=== PATIENT | male | born 1970 | race Hispanic/Latino ===

== ENCOUNTER 2018-02-11 18:54 | Emergency (ER) | payer MEDICAID ==
[2018-02-11 18:54] VITALS: BMI 27.8
--- NOTE | 2018-02-11 20:44 | ED PDOC ---
Arrival/HPI - General Chief Complaint: Trauma Time Seen by Provider: 02/11/18 20:18 Historian: Patient - History of Present Illness Narrative History of Present Illness (Text): 02/11/18 20:41 47-year-old male presents today with head and neck pain status post fall. Patient states that he was sitting in a chair that broke. Patient states he fell to the ground hitting the back of his head and injuring his neck. He is complaining of headache and dizziness. He is complaining of neck pain. He denies numbness weakness or tingling in the extremities. Patient denies chest pain or shortness of breath. Patient denies back pain. Incident occurred prior to arrival. No medications have been taken for pain. no Nausea/vomiting. No other complaints Time/Duration: Prior to Arrival Past Medical History - Provider Review Nursing Documentation Reviewed: Yes - Travel History Have you recently traveled outside [place] w/in the past 3 mons?: No - Infectious Disease Hx of Infectious Diseases: None - Cardiac Hx Cardiac Disorders: No - Pulmonary Hx Respiratory Disorders: No - Neurological Hx Neurological Disorder: No - HEENT Hx HEENT Disorder: No - Renal Hx Renal Disorder: No - Endocrine/Metabolic Hx Endocrine Disorders: No - Hematological/Oncological Hx Blood Disorders: No - Integumentary Hx Dermatological Disorder: No - Musculoskeletal/Rheumatological Hx Musculoskeletal Disorders: No - Gastrointestinal Hx Gastrointestinal Disorders: No - Genitourinary/Gynecological Hx Genitourinary Disorders: No - Psychiatric Hx Anxiety: Yes Hx Substance Use: No - Surgical History Other/Comment: Left foot surgery. - Anesthesia Hx Anesthesia Reactions: No Hx Malignant Hyperthermia: No - Suicidal Assessment Feels Threatened In Home Enviroment: No Family/Social History - Physician Review Nursing Documentation Reviewed: Yes Family/Social History: Unknown Family HX Smoking Status: Never Smoked Hx Alcohol Use: No Hx Substance Use: No Hx Substance Use Treatment: No Allergies/Home Meds Allergies/Adverse Reactions: Allergies No Known Allergies Allergy (Verified 02/11/18 19:26) Review of Systems - Review of Systems Constitutional: absent: Fatigue, Fevers Eyes: absent: Vision Changes, Eye Pain Respiratory: absent: SOB, Cough Cardiovascular: absent: Chest Pain, Palpitations Gastrointestinal: absent: Abdominal Pain, Nausea, Vomiting Genitourinary Male: absent: Dysuria, Frequency, Hematuria, Urinary Output Changes Musculoskeletal: Neck Pain. absent: Arthralgias, Back Pain Skin: absent: Rash, Pruritis Neurological: Headache, Dizziness Psychiatric: absent: Anxiety, Depression Physical Exam Vital Signs Reviewed: Yes Vital Signs Temp Pulse Resp BP Pulse Ox 02/11/18 21:10 98 F 65 19 137/78 99 02/11/18 19:26 98.2 F 78 16 143/72 95 Temperature: Afebrile Blood Pressure: Normal Pulse: Regular Respiratory Rate: Normal Appearance: Positive for: Well-Appearing, Non-Toxic, Comfortable Pain Distress: None Mental Status: Positive for: Alert and Oriented X 3 - Systems Exam Head: Present: Tenderness (+ ttp over posterior scalp: small area of edema; no ecchymosis; no laceration) Pupils: Present: PERRL Extroacular Muscles: Present: EOMI Conjunctiva: Present: Normal Mouth: Present: Moist Mucous Membranes Neck: Present: Normal Range of Motion, MIDLINE TENDERNESS, Paraspinal Tenderness , Trachea Midline Respiratory/Chest: Present: Clear to Auscultation, Good Air Exchange. No: Respiratory Distress, Accessory Muscle Use, Tender to Palpation Cardiovascular: Present: Regular Rate and Rhythm, Normal S1, S2. No: Murmurs Abdomen: No: Tenderness, Rebound, Guarding Back: Present: Normal Inspection. No: Midline Tenderness, Paraspinal Tenderness Upper Extremity: Present: Normal Inspection, Normal ROM Lower Extremity: Present: Normal ROM Neurological: Present: GCS=15 Skin: Present: Warm, Dry, Normal Color. No: Rashes Psychiatric: Present: Alert, Oriented x 3 Medical Decision Making ED Course and Treatment: 02/11/18 20:45 Patient nontoxic well-appearing in no distress with stable vital signs. flexeril PO ct head; FINDINGS: Brain: The white-bhat differentiation is preserved demonstrating no acute territorial type infarct. No acute intracranial hemorrhage is seen. There is mild prominence or atrophy of the frontal sulci. Midline shift: There is no midline shift. Ventricles: No ventriculomegaly. Bones/joints: The calvarium demonstrates no evidence for a depressed fracture. There is a nonspecific hypodense lesion within the right parietal skull measuring 0.9 x 0.6 cm. Soft tissues: No acute abnormality. Sinuses: There is minimal mucosal thickening of the left maxillary sinus. Mastoid air cells: No mastoid effusion. IMPRESSION: 1. No acute intracranial abnormality. 2. Additional CT findings described above. ct c-spine; FINDINGS: Vertebrae: No acute cervical spine fracture or subluxation. The cervical lordosis is straightened. The facet alignment is preserved bilaterally. The occipital condyles and C1-C2 articulations appear intact. Discs/spinal canal/neural foramina: Spondylosis is visualized at multiple cervical levels. Bilateral neural foraminal narrowing is identified at C5-6. There is a significant decrease of disc height at C5- 6. Hypertrophic degenerative changes are identified at the junction of the anterior C1 arch and dens process. Artifact limits evaluation of the lower cervical spinal canal. Soft tissues: The prevertebral soft tissues appear within normal limits. Lung apices: No pneumothorax. Mild patchy nonspecific groundglass density is visualized within the lungs bilaterally. IMPRESSION: 1. No acute cervical spine fracture or subluxation. 2. The cervical lordosis is straightened. 3. Spondylosis is visualized at multiple cervical levels. 4. Bilateral neural foraminal narrowing is identified at C5-6. This can be further evaluated with a nonemergent MRI. Patient reassessment: Feeling better with medications ambulating with a steady gait. Muscle strength 5 out of 5 bilaterally. wants to go home. I advised to followup with the orthopedist/back specialist within the next 2 days. Return if symptoms worsen persist or new symptoms develop Patient verbalizes understanding of discharge instructions and need for immediate followup. all aspects of this case were discussed the attending of record. Impression: neck pain, head injury Tylenol every 4 hours as needed for pain Flexeril one tablet every 8 hours as needed for muscle spasms: May cause drowsiness Followup with the orthopedist within the next 2 days Followup with primary care physician within the next 2 days Follow up with the neurologist within the next 2 days. Return if symptoms worsen persist or if new symptoms develop - RAD Interpretation Radiology Orders: 02/11/18 20:19 CERVICAL SPINE W/O CONTRAST [CT] Stat HEAD W/O CONTRAST [CT] Stat - Medication Orders Current Medication Orders: Discontinued Medications Cyclobenzaprine HCl (Flexeril) 10 mg PO STAT STA Stop: 02/11/18 20:20 Last Admin: 02/11/18 20:32 Dose: 10 mg Disposition/Present on Arrival - Present on Arrival Any Indicators Present on Arrival: No History of DVT/PE: No History of Uncontrolled Diabetes: No Urinary Catheter: No History of Decub. Ulcer: No History Surgical Site Infection Following: None - Disposition Have Diagnosis and Disposition been Completed?: Yes Diagnosis: Head injury, Neck pain Disposition: HOME/ ROUTINE Disposition Time: 21:58 Patient Plan: Discharge Condition: GOOD Discharge Instructions (ExitCare): Closed Head Injury (DC), Neck Pain Additional Instructions: Tylenol every 4 hours as needed for pain Flexeril one tablet every 8 hours as needed for muscle spasms: May cause drowsiness Followup with the orthopedist within the next 2 days Followup with primary care physician within the next 2 days Follow up with the neurologist within the next 2 days. Return if symptoms worsen persist or if new symptoms develop Prescriptions: Cyclobenzaprine [Cyclobenzaprine HCl] 10 mg PO Q8 #10 tab Referrals: Landen Zapata MD [Primary Care Provider] - Follow up with primary Mohsen De Santiago MD [Staff Provider] - Follow up with primary Forms: [facility] ([place]), WORK NOTE
[2018-02-11 21:10] VITALS: BP 137/78; PULSE 65; RESP 19; TEMP 98; O2SAT 99
--- NOTE | 2018-02-11 21:42 | CT ---
EXAM: CT Head Without Intravenous Contrast EXAM DATE/TIME: 02/11/2018 8:19 PM CLINICAL HISTORY: The patient age is 47 years old and is male; Injury or trauma; Fall; Initial encounter; Blunt trauma (contusions or hematomas); Consciousness not specified; Additional info: Headache Facility exam id and description: Ct heads head w/o contrast TECHNIQUE: Axial computed tomography images of the head/brain without intravenous contrast. All CT scans at this facility use one or more dose reduction techniques, viz.: automated exposure control; ma/kV adjustment per patient size (including targeted exams where dose is matched to indication; i.e. head); or iterative reconstruction technique. Coronal and sagittal reformatted images were created and reviewed. COMPARISON: No relevant prior studies available. FINDINGS: Brain: The white-bhat differentiation is preserved demonstrating no acute territorial type infarct. No acute intracranial hemorrhage is seen. There is mild prominence or atrophy of the frontal sulci. Midline shift: There is no midline shift. Ventricles: No ventriculomegaly. Bones/joints: The calvarium demonstrates no evidence for a depressed fracture. There is a nonspecific hypodense lesion within the right parietal skull measuring 0.9 x 0.6 cm. Soft tissues: No acute abnormality. Sinuses: There is minimal mucosal thickening of the left maxillary sinus. Mastoid air cells: No mastoid effusion. IMPRESSION: 1. No acute intracranial abnormality. 2. Additional CT findings described above.
--- NOTE | 2018-02-11 21:54 | CT ---
EXAM: CT Cervical Spine Without Intravenous Contrast EXAM DATE/TIME: 02/11/2018 8:19 PM CLINICAL HISTORY: The patient age is 47 years old and is male; Injury or trauma; Fall; Initial encounter; Blunt trauma; Additional info: Neck pain Facility exam id and description: Ct csps cervical spine w/o contrast TECHNIQUE: Axial computed tomography images of the cervical spine without intravenous contrast. All CT scans at this facility use one or more dose reduction techniques, viz.: automated exposure control; ma/kV adjustment per patient size (including targeted exams where dose is matched to indication; i.e. head); or iterative reconstruction technique. Coronal and sagittal reformatted images were created and reviewed. COMPARISON: No relevant prior studies available. FINDINGS: Vertebrae: No acute cervical spine fracture or subluxation. The cervical lordosis is straightened. The facet alignment is preserved bilaterally. The occipital condyles and C1-C2 articulations appear intact. Discs/spinal canal/neural foramina: Spondylosis is visualized at multiple cervical levels. Bilateral neural foraminal narrowing is identified at C5-6. There is a significant decrease of disc height at C5-6. Hypertrophic degenerative changes are identified at the junction of the anterior C1 arch and dens process. Artifact limits evaluation of the lower cervical spinal canal. Soft tissues: The prevertebral soft tissues appear within normal limits. Lung apices: No pneumothorax. Mild patchy nonspecific groundglass density is visualized within the lungs bilaterally. IMPRESSION: 1. No acute cervical spine fracture or subluxation. 2. The cervical lordosis is straightened. 3. Spondylosis is visualized at multiple cervical levels. 4. Bilateral neural foraminal narrowing is identified at C5-6. This can be further evaluated with a nonemergent MRI.
== END 2018-02-11 22:00 | disposition home or self-care (01) ==
LOC: ED 18:54
DX: S09.90XA Unspecified injury of head, initial encounter (principal); W07.XXXA Fall from chair, initial encounter; M54.2 Cervicalgia

== ENCOUNTER 2018-05-18 09:44 | Day surgery (SDC) | payer MEDICAID ==
[2018-05-15 07:39] VITALS: BMI 27.1
[~2018-05-18 09:44] MED LIST: Sodium Chloride 0.9% 1,000 ML IV SCH
[2018-05-18] MEDS ORDERED: Propofol 10 mg/ml Inj (20 ML) ONE (11:38)
[2018-05-18 13:14] VITALS: RESP 16
[2018-05-18 14:15] VITALS: BP 112/66; PULSE 69; TEMP 98; O2SAT 97
== END 2018-05-18 14:00 | disposition home or self-care (01) ==
LOC: ENDO 09:44
PROVIDERS: ATTEND Internal Medicine Gastroenterology
DX: K31.7 Polyp of stomach and duodenum (principal); K29.50 Unspecified chronic gastritis without bleeding; K31.89 Other diseases of stomach and duodenum; K62.5 Hemorrhage of anus and rectum; K64.0 First degree hemorrhoids; R10.13 Epigastric pain
CPT/HCPCS: 43239; 45378; 88305; 88312; 88342; J2001; J2704; J7030; J7040

== ENCOUNTER 2018-11-03 03:00 | Observation (INO) | payer MEDICAID ==
--- NOTE | 2018-11-03 03:22 | ED PDOC ---
Arrival/HPI - General Chief Complaint: Trauma Time Seen by Provider: 11/03/18 03:03 Historian: Patient - History of Present Illness Narrative History of Present Illness (Text): 11/03/18 03:37 48 year old male, with no significant past medical history, presents to the emergency department for evaluation, status post episodes of dizziness. Patient states he had about 4 episodes where he felt dizzy and fell, hitting his head during the last one. Patient informs of an episode of bloody stool a week ago, for which he was given medication by his PMD. Patient denies any fever, chills, cough, chest pain, shortness of breath, abdominal pain, nausea, vomiting, diarrhea, or any other complaints. PMD: Dr Zapata GI: Dr Ames Time/Duration: 24 hours Symptom Onset: Sudden Symptom Course: Unchanged, Intermittent Activities at Onset: Light Context: Home Past Medical History - Provider Review Nursing Documentation Reviewed: Yes - Infectious Disease Hx of Infectious Diseases: None - Cardiac Hx Pacemaker: No - Pulmonary Hx Respiratory Disorders: No - Neurological Hx Paralysis: No - HEENT Hx HEENT Disorder: No - Renal Hx Renal Disorder: No - Endocrine/Metabolic Hx Endocrine Disorders: No - Hematological/Oncological Hx Blood Transfusions: No Hx Blood Transfusion Reaction: No - Integumentary Hx Dermatological Disorder: No - Musculoskeletal/Rheumatological Hx Musculoskeletal Disorders: No - Gastrointestinal Hx Gastrointestinal Disorders: No - Genitourinary/Gynecological Hx Genitourinary Disorders: No - Psychiatric Hx Emotional Abuse: No Hx Physical Abuse: No Hx Substance Use: No - Surgical History Other/Comment: Left foot surgery. - Anesthesia Hx Anesthesia Reactions: No Hx Malignant Hyperthermia: No - Suicidal Assessment Feels Threatened In Home Enviroment: No Family/Social History - Physician Review Nursing Documentation Reviewed: Yes Family/Social History: No Known Family HX Smoking Status: Never Smoked Hx Alcohol Use: No Hx Substance Use: No Hx Substance Use Treatment: No Allergies/Home Meds Allergies/Adverse Reactions: Allergies No Known Allergies Allergy (Verified 11/03/18 03:11) Home Medications: Home Meds Medication Instructions Recorded Confirmed Ascorbic Acid [Vitamin C 500 mg 1,000 mg PO DAILY 05/12/18 05/18/18 Tab] B Energy 1 tab PO DAILY 05/12/18 05/18/18 Bupropion HCl [Wellbutrin XL] 300 mg PO DAILY 05/12/18 05/18/18 Cholecalciferol (Vitamin D3) 5,000 unit PO DAILY 05/12/18 05/18/18 [Vitamin D3] [place]yn[place] 4 tab PO DAILY 05/12/18 05/18/18 Lactobacillus Combination No.8 1 cap PO DAILY 05/12/18 05/18/18 [Adult Probiotic] Multivitamin/Iron/Folic Acid 1 tab PO DAILY 05/12/18 05/18/18 [Centrum Adults Tablet] Quadralean 6 tab PO DAILY 05/12/18 05/18/18 Vitamin E Mixed [Vitamin E] 180 mg PO DAILY 05/12/18 05/18/18 hydrOXYzine Pamoate [Vistaril] 25 mg PO BID 05/12/18 05/18/18 Review of Systems - Physician Review All systems were reviewed & negative as marked: Yes - Review of Systems Constitutional: absent: Fevers, Night Sweats Respiratory: absent: SOB, Cough Cardiovascular: absent: Chest Pain Gastrointestinal: absent: Abdominal Pain, Diarrhea, Nausea, Vomiting Neurological: Dizziness Physical Exam Vital Signs Reviewed: Yes Temperature: Afebrile Blood Pressure: Normal Pulse: Regular Respiratory Rate: Normal Appearance: Positive for: Well-Appearing, Non-Toxic, Comfortable Pain Distress: None Mental Status: Positive for: Alert and Oriented X 3 - Systems Exam Head: Present: Atraumatic, Normocephalic Pupils: Present: PERRL Extroacular Muscles: Present: EOMI Conjunctiva: Present: Normal Mouth: Present: Dry. No: Moist Mucous Membranes Neck: Present: Normal Range of Motion Respiratory/Chest: Present: Clear to Auscultation, Good Air Exchange. No: Respiratory Distress, Accessory Muscle Use Cardiovascular: Present: Regular Rate and Rhythm, Normal S1, S2. No: Murmurs Abdomen: No: Tenderness, Distention, Peritoneal Signs Back: Present: Normal Inspection Upper Extremity: Present: Normal Inspection. No: Cyanosis, Edema Lower Extremity: Present: Normal Inspection. No: Edema Neurological: Present: GCS=15, CN II-XII Intact, Speech Normal Skin: Present: Warm, Dry, Normal Color. No: Rashes Psychiatric: Present: Alert, Oriented x 3, Normal Insight, Normal Concentration Medical Decision Making ED Course and Treatment: 11/03/18 03:44 Impression: 48 year old male presents with dizziness and multiple falls. Plan: -- CT Head -- EKG -- Chemistry -- EKG -- CBC -- Urine culture -- Urinalysis -- Reassess and disposition Prior Visits: Notes and results from previous visits were reviewed. Progress Notes: 11/03/18 05:42 EKG Reviewed by me, shows: Sinus bradycardia @ 54 bpm - Scribe Statement The provider has reviewed the documentation as recorded by the Scribe Kal Yang Provider Scribe Attestation: All medical record entries made by the Scribe were at my direction and personally dictated by me. I have reviewed the chart and agree that the record accurately reflects my personal performance of the history, physical exam, medical decision making, and the department course for this patient. I have also personally directed, reviewed, and agree with the discharge instructions and disposition. Disposition/Present on Arrival - Present on Arrival Any Indicators Present on Arrival: No History of DVT/PE: No History of Uncontrolled Diabetes: No Urinary Catheter: No History of Decub. Ulcer: No History Surgical Site Infection Following: None - Disposition Have Diagnosis and Disposition been Completed?: Yes Diagnosis: Symptomatic bradycardia, Near syncope Disposition Time: 05:50 Condition: STABLE
[2018-11-03] MEDS ORDERED: Sodium Chloride 0.9% 1,000 ML IV ONE (03:36)
[2018-11-03 03:59] LABS: BASO # 0.02 K/mm3 (0.0-2.0); BASO % 0.2 % (0.0-3.0); EOS # 0.1 (0.0-0.7); GRAN # 7.25 (1.4-6.5); GRAN % 67.5 % (50.0-68.0); HEMOGLOBIN 14.9 g/dL (14.0-18.0); LYMPH # 2.5 (1.2-3.4); LYMPH % 23.5 % (22.0-35.0); MEAN CELL VOLUME 91.3 fl (80.0-105.0); MEAN CORPUSCULAR HEMOGLOBIN 31.8 pg (25.0-35.0); MEAN CORPUSCULAR HGB CONC 34.8 g/dl (31.0-37.0); MEAN PLATELET VOLUME 9.6 fl (7.0-11.0); MONO # 0.8 (0.1-0.6); MONO % 7.8 % (1.0-6.0); RBC 4.69 10^6/uL (3.5-6.1); RED CELL DISTRIBUTION WIDTH 12.9 % (11.5-14.5); WHITE BLOOD COUNT 10.8 10^3/uL (4.5-11.0)
[2018-11-03 04:11] LABS: ALB/GLOB RATIO 1.3 (1.1-1.8); ALBUMIN 4.7 g/dL (3.0-4.8); ALT/SGPT 78 U/L (7-56); AST/SGOT 50 U/L (17-59); BLOOD UREA NITROGEN 17 mg/dL (7-21); CALCIUM 9.7 mg/dL (8.4-10.5); GFR NON-AFRICAN AMERICAN 54
[2018-11-03 04:38] LABS: TROPONIN I < 0.01 ng/mL
[2018-11-03 06:56] LABS: URINE APPEARANCE CLEAR (CLEAR); URINE BILIRUBIN NEGATIVE (NEGATIVE); URINE BLOOD NEGATIVE (NEGATIVE); URINE COLOR YELLOW (YELLOW); URINE GLUCOSE (UA) NEGATIVE (NEGATIVE); URINE LEUKOCYTE ESTERASE NEGATIVE Leu/uL (NEGATIVE); URINE PROTEIN NEGATIVE mg/dL (<30 mg/dL); URINE UROBILINOGEN 0.2 E.U./dL (<1 E.U./dL)
[2018-11-03 07:24] LABS: OPIATES, UR NEGATIVE (NEGATIVE)
[2018-11-03 07:29] LABS: BARBITURATES, UR NEGATIVE (NEGATIVE); BENZODIAZEPINES, UR POSITIVE (NEGATIVE); PHENCYCLIDINE, UR NEGATIVE (NEGATIVE)
--- NOTE | 2018-11-03 08:28 | CT ---
Date of service: 11/03/2018 PROCEDURE: CT HEAD WITHOUT CONTRAST. HISTORY: multiple falls COMPARISON: 02/11/2018 TECHNIQUE: Axial computed tomography images were obtained through the head/brain without intravenous contrast. Radiation dose: Total exam DLP = 909.46 mGy-cm. This CT exam was performed using one or more of the following dose reduction techniques: Automated exposure control, adjustment of the mA and/or kV according to patient size, and/or use of iterative reconstruction technique. FINDINGS: HEMORRHAGE: No intracranial hemorrhage. BRAIN: No mass effect or edema. No atrophy or chronic microvascular ischemic changes. VENTRICLES: Unremarkable. No hydrocephalus. CALVARIUM: Unremarkable. PARANASAL SINUSES: Unremarkable as visualized. No significant inflammatory changes. MASTOID AIR CELLS: Unremarkable as visualized. No inflammatory changes. OTHER FINDINGS: The report concurs with the preliminary [facility] report IMPRESSION: No acute intracranial findings
--- NOTE | 2018-11-03 08:43 | RAD ---
Date of service: 11/03/2018 PROCEDURE: CHEST RADIOGRAPH, 1 VIEW HISTORY: r/o infiltrate COMPARISON: 03/11/2018. FINDINGS: LUNGS: The lungs are well inflated and clear. PLEURA: No pneumothorax or pleural effusion. CARDIOVASCULAR: The heart is normal in size. No aortic atherosclerotic calcifications present. OSSEOUS STRUCTURES: Within normal limits for the patient's age. VISUALIZED UPPER ABDOMEN: Normal. OTHER FINDINGS: None. IMPRESSION: No active pulmonary disease.
[2018-11-03] MEDS: Sodium Chloride 0.9% 1,000 ML IV SCH ×2 (10:15→20:29)
--- NOTE | 2018-11-03 12:51 | CP.PCM.HP ---
<Jac,Nathalie - Last Filed: 11/03/18 13:06> History of Present Illness - History of Present Illness History of Present Illness: Nathalie Nathan DO, PGY-2: Hospitalist HPI 48 year old male with a past medical history of anxiety and depression who presents with multiple falls in the past day. He reports sitting on the couch last night and watching TV and feeling dizzy. This was around 1:00 AM. He walked to the bathroom and stumbled. Per the patient's mother he fell multiple times yesterday. In regards to his falls, the patient reports he was able to get up, had no LOC, seizure activity, headache, chest pain, vision changes, or vertigo. Review of the patient's medication reveal he is on a number of medications, including, but not limited to, Clonazepam, Amitriptyline, Wellbutrin, Lexapro and Tramadol. The patient omitting this information but his pharmacy was contacted. In the ED he was noted to have orthostatic hypotension and appeared fairly sedated, possibly depressed. Otherwise, the patient reports having a skin infection on the right back side of his neck. He was given Keflex and Bactrim for the infection the physician who performed acupunture or some kind of nerve block to his neck for pain. He reports taking an excess of the antibiotics overnight in trying to reduce the infection. At the time of examination, he has no sign of infection on his neck. Otherwise, a 12 point review of system is negative. PMH: Anxiety and depression PSH: Left foot surgery, unspecified Allergies: NKDA Family History: denies Social: Denies alcohol, tobacco, or illicit drug use Present on Admission - Present on Admission Any Indicators Present on Admission: No Review of Systems - Review of Systems All systems: reviewed and no additional remarkable complaints except (as per HPI) Past Patient History - Infectious Disease Hx of Infectious Diseases: None - Past Social History Smoking Status: Never Smoked - CARDIAC Hx Pacemaker: No - PULMONARY Hx Respiratory Disorders: No - NEUROLOGICAL Hx Paralysis: No - HEENT Hx HEENT Problems: No - RENAL Hx Chronic Kidney Disease: No - ENDOCRINE/METABOLIC Hx Endocrine Disorders: No - HEMATOLOGICAL/ONCOLOGICAL Hx Blood Transfusions: No Hx Blood Transfusion Reaction: No - INTEGUMENTARY Hx Dermatological Problems: No - MUSCULOSKELETAL/RHEUMATOLOGICAL Hx Musculoskeletal Disorders: No - GASTROINTESTINAL Hx Gastrointestinal Disorders: No - GENITOURINARY/GYNECOLOGICAL Hx Genitourinary Disorders: No - PSYCHIATRIC Hx Emotional Abuse: No Hx Physical Abuse: No Hx Substance Use: No - SURGICAL HISTORY Other/Comment: Left foot surgery. - ANESTHESIA Hx Anesthesia Reactions: No Hx Malignant Hyperthermia: No Meds Allergies/Adverse Reactions: Allergies Allergy/AdvReac Type Severity Reaction Status Date / Time No Known Allergies Allergy Verified 11/03/18 03:11 Physical Exam - Constitutional Appears: Non-toxic, No Acute Distress - Head Exam Head Exam: ATRAUMATIC, NORMOCEPHALIC - Eye Exam Eye Exam: EOMI, Normal appearance - ENT Exam ENT Exam: Mucous Membranes Moist, Normal Oropharynx - Neck Exam Neck exam: Positive for: Normal Inspection - Respiratory Exam Respiratory Exam: Clear to Auscultation Bilateral, NORMAL BREATHING PATTERN. absent: Accessory Muscle Use - Cardiovascular Exam Cardiovascular Exam: RRR, +S1, +S2 - GI/Abdominal Exam GI & Abdominal Exam: Normal Bowel Sounds, Soft - Extremities Exam Extremities exam: Positive for: normal inspection. Negative for: calf tenderness - Neurological Exam Neurological exam: CN II-XII Intact - Psychiatric Exam Psychiatric exam: Depressed, Flat Affect - Skin Skin Exam: Dry, Intact, Normal Color, Warm Results - Vital Signs Recent Vital Signs: Last Vital Signs Temp 98.5 F 11/03/18 08:03 Pulse 58 L 11/03/18 08:03 Resp 18 11/03/18 08:03 BP 122/68 11/03/18 08:03 Pulse Ox 95 11/03/18 08:03 - Labs Result Diagrams: 11/03/18 03:45 11/03/18 03:45 Labs: Laboratory Results - last 24 hr 11/03/18 11/03/18 11/03/18 03:45 03:45 03:45 WBC 10.8 RBC 4.69 Hgb 14.9 Hct 42.8 MCV 91.3 MCH 31.8 MCHC 34.8 RDW 12.9 Plt Count 341 MPV 9.6 Gran % 67.5 Lymph % (Auto) 23.5 [place] % (Auto) 7.8 H Eos % (Auto) 1.0 L Baso % (Auto) 0.2 Gran # 7.25 H Lymph # (Auto) 2.5 [place] # (Auto) 0.8 H Eos # (Auto) 0.1 Baso # (Auto) 0.02 Sodium 138 Potassium 4.3 Chloride 99 Carbon Dioxide 26 Anion Gap 17 BUN 17 Creatinine 1.4 Est GFR ( Amer) > 60 Est GFR (Non-Af Amer) 54 Random Glucose 124 H Calcium 9.7 Magnesium 2.2 Total Bilirubin 1.3 AST 50 ALT 78 H Alkaline Phosphatase 80 Lactate Dehydrogenase 356 Total Creatine Kinase 192 Troponin I < 0.01 Total Protein 8.3 Albumin 4.7 Globulin 3.6 Albumin/Globulin Ratio 1.3 Urine Color Urine Appearance Urine pH Ur Specific [place] Urine Protein Urine Glucose (UA) Urine Ketones Urine Blood Urine Nitrate Urine Bilirubin Urine Urobilinogen Ur Leukocyte Esterase Urine Opiates Screen Urine Methadone Screen Ur Barbiturates Screen Ur Phencyclidine Scrn Ur Amphetamines Screen U Benzodiazepines Scrn U Oth Cocaine Metabols U Cannabinoids Screen Alcohol, Quantitative < 10 11/03/18 11/03/18 06:40 06:40 WBC RBC Hgb Hct MCV MCH MCHC RDW Plt Count MPV Gran % Lymph % (Auto) [place] % (Auto) Eos % (Auto) Baso % (Auto) Gran # Lymph # (Auto) [place] # (Auto) Eos # (Auto) Baso # (Auto) Sodium Potassium Chloride Carbon Dioxide Anion Gap BUN Creatinine Est GFR ( Amer) Est GFR (Non-Af Amer) Random Glucose Calcium Magnesium Total Bilirubin AST ALT Alkaline Phosphatase Lactate Dehydrogenase Total Creatine Kinase Troponin I Total Protein Albumin Globulin Albumin/Globulin Ratio Urine Color Yellow Urine Appearance Clear Urine pH 7.0 Ur Specific [place] 1.010 Urine Protein Negative Urine Glucose (UA) Negative Urine Ketones Negative Urine Blood Negative Urine Nitrate Negative Urine Bilirubin Negative Urine Urobilinogen 0.2 Ur Leukocyte Esterase Negative Urine Opiates Screen Negative Urine Methadone Screen Negative Ur Barbiturates Screen Negative Ur Phencyclidine Scrn Negative Ur Amphetamines Screen Negative U Benzodiazepines Scrn Positive H U Oth Cocaine Metabols Negative U Cannabinoids Screen Negative Alcohol, Quantitative Assessment & Plan - Assessment and Plan (Free Text) Assessment: 48 year old with a past medical history of anxiety and depression admitted for multiple falls. 1) Multiple falls in the past day - Rule out underlying arrhythmia given the patient is on TCA (Amitryptyline and takes Tramadol periodically) and will monitor on telemetry - CT head no intracranial process - Chest X-ray negative - EKG showed sinus bradycardia - Holding Elavil, Lexapro, Wellbutrin, Clonazepam, Hydrozyzine - Physical Therapy evaluation - Fall precautions 2) Anxiety and depression - Psychiatry consulted, appreciate recommendations - Holding the above psychotropics 3) Orthostatic hypotension - Fluids - PT therapy - Fall precautions 4) Cellulitis of neck not presence - Hold Bactrim and Cephalexin 5) DVT/GI prophylaxis - Not indicated Case reviewed and discussed with attending physician, Dr. Begum - Date & Time Date: 11/03/18 Time: 13:05 <Ashley Begum - Last Filed: 11/04/18 17:24> Results - Vital Signs Recent Vital Signs: Last Vital Signs Temp 98.6 F 11/04/18 12:00 Pulse 53 L 11/04/18 12:00 Resp 18 11/04/18 12:00 BP 129/72 11/04/18 12:00 Pulse Ox 98 11/04/18 05:55 - Labs Result Diagrams: 11/04/18 06:30 11/04/18 06:30 Labs: Laboratory Results - last 24 hr 11/04/18 11/04/18 06:30 06:30 WBC 9.3 RBC 4.62 Hgb 14.3 Hct 41.8 L MCV 90.5 MCH 31.0 MCHC 34.2 RDW 12.7 Plt Count 306 MPV 9.6 Gran % 66.3 Lymph % (Auto) 24.0 [place] % (Auto) 8.7 H Eos % (Auto) 0.8 L Baso % (Auto) 0.2 Gran # 6.19 Lymph # (Auto) 2.2 [place] # (Auto) 0.8 H Eos # (Auto) 0.1 Baso # (Auto) 0.02 Sodium 137 Potassium 4.0 Chloride 103 Carbon Dioxide 24 Anion Gap 14 BUN 17 Creatinine 1.3 Est GFR ( Amer) > 60 Est GFR (Non-Af Amer) 59 Random Glucose 111 H Calcium 9.1 Phosphorus 3.8 Magnesium 2.2 Total Bilirubin 1.2 AST 53 ALT 71 H Alkaline Phosphatase 77 Total Protein 7.8 Albumin 4.3 Globulin 3.5 Albumin/Globulin Ratio 1.3 Attending/Attestation - Attestation I have personally seen and examined this patient.: Yes I have fully participated in the care of the patient.: Yes I have reviewed all pertinent clinical information: Yes Notes (Text): 11/04/18 17:22 Medical record note made by the resident after discussion with my direction and input after the patient was personally seen and examined by me. I have reviewed the chart and agree that the record accurately reflects by personal performance of the history, physical exam, data review, and medical decision-making, in the course for the patient. I have also personally directed the plan of care. 48 year old male with a past medical history of anxiety and depression who presented with multiple falls at home.There is no focal deficit. Patient CT head is negative.He is found to have Orthostatic Hypotension . we will start patient on IV hydration. We will monitor in telemetry for any arrythmia. We will also get Physical therapy evaluation. Management plan was discussed in detail with patient. Education was provided
[2018-11-03 14:02] VITALS: BMI 25.8
[2018-11-03] MEDS ORDERED: Pneumococcal 23-Valent Vaccine IM ONE (14:03)
[2018-11-03] MEDS ORDERED: Influenza Vaccine 60 mcg/0.5 mL SYR (4YR UP) IM ONE (14:03)
--- NOTE | 2018-11-03 20:46 | CARD ---
APPROVED REPORT Date of service: 11/03/2018 EKG Measurement Heart [id number] <Conclusion> Sinus bradycardia Otherwise normal ECG
[2018-11-04 05:58] VITALS: O2SAT 98
[2018-11-04] MEDS ORDERED: Pantoprazole 40 mg EC Tab PO SCH (06:00)
[2018-11-04 06:56] LABS: BASO # 0.02 K/mm3 (0.0-2.0); BASO % 0.2 % (0.0-3.0); EOS # 0.1 (0.0-0.7); EOS % 0.8 % (1.5-5.0); GRAN # 6.19 (1.4-6.5); GRAN % 66.3 % (50.0-68.0); HEMOGLOBIN 14.3 g/dL (14.0-18.0); LYMPH # 2.2 (1.2-3.4); MEAN CELL VOLUME 90.5 fl (80.0-105.0); MEAN CORPUSCULAR HGB CONC 34.2 g/dl (31.0-37.0); MEAN PLATELET VOLUME 9.6 fl (7.0-11.0); MONO # 0.8 (0.1-0.6); MONO % 8.7 % (1.0-6.0); RBC 4.62 10^6/uL (3.5-6.1); RED CELL DISTRIBUTION WIDTH 12.7 % (11.5-14.5); WHITE BLOOD COUNT 9.3 10^3/uL (4.5-11.0)
[2018-11-04 07:19] LABS: ALB/GLOB RATIO 1.3 (1.1-1.8); ALBUMIN 4.3 g/dL (3.0-4.8); ALT/SGPT 71 U/L (7-56); AST/SGOT 53 U/L (17-59); BLOOD UREA NITROGEN 17 mg/dL (7-21); CALCIUM 9.1 mg/dL (8.4-10.5); GFR NON-AFRICAN AMERICAN 59
[2018-11-04 12:05] VITALS: BP 129/72; PULSE 53; RESP 18; TEMP 98.6
--- NOTE | 2018-11-04 12:20 | CP.PCM.DIS ---
<Nathalie Nathan - Last Filed: 11/04/18 12:20> Provider - Provider Date of Admission: 11/03/18 06:08 Attending physician: Ashley Begum MD Primary care physician: Landen Zapata MD Consults: 11/03/18 09:56 Physician Consult Routine Comment: Consulting Provider: Tova Gamboa Consulting Physician: Tova Gamboa Reason for Consult: depression, orthostatic hypotension, sedated 11/03/18 13:32 Social Work Referral Routine Comment: d/c plan Physician Instructions: Reason For Exam: eal Time Spent in preparation of Discharge (in minutes): 35 Hospital Course - Lab Results Lab Results: Micro Results 11/03/18 20:50 Stool C. difficile Antigen & Toxins A,B - Final 11/03/18 06:40 Urine Urine Culture - Final No Growth (<1,000 CFU/ML) Most Recent Lab Values WBC 9.3 10^3/uL (4.5-11.0) 11/04/18 06:30 RBC 4.62 10^6/uL (3.5-6.1) 11/04/18 06:30 Hgb 14.3 g/dL (14.0-18.0) 11/04/18 06:30 Hct 41.8 % (42.0-52.0) L 11/04/18 06:30 MCV 90.5 fl (80.0-105.0) 11/04/18 06:30 MCH 31.0 pg (25.0-35.0) 11/04/18 06:30 MCHC 34.2 g/dl (31.0-37.0) 11/04/18 06:30 RDW 12.7 % (11.5-14.5) 11/04/18 06:30 Plt Count 306 10^3/uL (120.0-450.0) 11/04/18 06:30 MPV 9.6 fl (7.0-11.0) 11/04/18 06:30 Gran % 66.3 % (50.0-68.0) 11/04/18 06:30 Lymph % (Auto) 24.0 % (22.0-35.0) 11/04/18 06:30 [place] % (Auto) 8.7 % (1.0-6.0) H 11/04/18 06:30 Eos % (Auto) 0.8 % (1.5-5.0) L 11/04/18 06:30 Baso % (Auto) 0.2 % (0.0-3.0) 11/04/18 06:30 Gran # 6.19 (1.4-6.5) 11/04/18 06:30 Lymph # (Auto) 2.2 (1.2-3.4) 11/04/18 06:30 [place] # (Auto) 0.8 (0.1-0.6) H 11/04/18 06:30 Eos # (Auto) 0.1 (0.0-0.7) 11/04/18 06:30 Baso # (Auto) 0.02 K/mm3 (0.0-2.0) 11/04/18 06:30 Sodium 137 mmol/L (132-148) 11/04/18 06:30 Potassium 4.0 mmol/L (3.6-5.0) 11/04/18 06:30 Chloride 103 mmol/L (98-107) 11/04/18 06:30 Carbon Dioxide 24 mmol/L (21-33) 11/04/18 06:30 Anion Gap 14 (10-20) 11/04/18 06:30 BUN 17 mg/dL (7-21) 11/04/18 06:30 Creatinine 1.3 mg/dl (0.8-1.5) 11/04/18 06:30 Est GFR ( Amer) > 60 11/04/18 06:30 Est GFR (Non-Af Amer) 59 11/04/18 06:30 Random Glucose 111 mg/dL (70-110) H 11/04/18 06:30 Calcium 9.1 mg/dL (8.4-10.5) 11/04/18 06:30 Phosphorus 3.8 mg/dL (2.5-4.5) 11/04/18 06:30 Magnesium 2.2 mg/dL (1.7-2.2) 11/04/18 06:30 Total Bilirubin 1.2 mg/dL (0.2-1.3) 11/04/18 06:30 AST 53 U/L (17-59) 11/04/18 06:30 ALT 71 U/L (7-56) H 11/04/18 06:30 Alkaline Phosphatase 77 U/L (38-126) 11/04/18 06:30 Lactate Dehydrogenase 356 U/L (333-699) 11/03/18 03:45 Total Creatine Kinase 192 U/L (35-230) 11/03/18 03:45 Troponin I < 0.01 ng/mL 11/03/18 03:45 Total Protein 7.8 g/dL (5.8-8.3) 11/04/18 06:30 Albumin 4.3 g/dL (3.0-4.8) 11/04/18 06:30 Globulin 3.5 gm/dL 11/04/18 06:30 Albumin/Globulin Ratio 1.3 (1.1-1.8) 11/04/18 06:30 Urine Color Yellow (YELLOW) 11/03/18 06:40 Urine Appearance Clear (CLEAR) 11/03/18 06:40 Urine pH 7.0 (4.7-8.0) 11/03/18 06:40 Ur Specific [place] 1.010 (1.005-1.035) 11/03/18 06:40 Urine Protein Negative mg/dL (<30 mg/dL) 11/03/18 06:40 Urine Glucose (UA) Negative mg/dL (NEGATIVE) 11/03/18 06:40 Urine Ketones Negative mg/dL (NEGATIVE) 11/03/18 06:40 Urine Blood Negative (NEGATIVE) 11/03/18 06:40 Urine Nitrate Negative (NEGATIVE) 11/03/18 06:40 Urine Bilirubin Negative (NEGATIVE) 11/03/18 06:40 Urine Urobilinogen 0.2 E.U./dL (<1 E.U./dL) 11/03/18 06:40 Ur Leukocyte Esterase Negative Lb/uL (NEGATIVE) 11/03/18 06:40 Urine Opiates Screen Negative (NEGATIVE) 11/03/18 06:40 Urine Methadone Screen Negative (NEGATIVE) 11/03/18 06:40 Ur Barbiturates Screen Negative (NEGATIVE) 11/03/18 06:40 Ur Phencyclidine Scrn Negative (NEGATIVE) 11/03/18 06:40 Ur Amphetamines Screen Negative (NEGATIVE) 11/03/18 06:40 U Benzodiazepines Scrn Positive (NEGATIVE) H 11/03/18 06:40 U Oth Cocaine Metabols Negative (NEGATIVE) 11/03/18 06:40 U Cannabinoids Screen Negative (NEGATIVE) 11/03/18 06:40 Alcohol, Quantitative < 10 mg/dL (0-10) 11/03/18 03:45 - Hospital Course Hospital Course: 48 year old male with a past medical history of anxiety and depression who presented with multiple falls on the day of admission. He denied any associated vertigo, palitations, chest pain, or shortness of breath. EKG showed sinus bradycardi while CT scan of the head was negative and the patient had no visible bruises or lacerations from his fall. Orthostatic vitals signs in the ED revealed orthostatic hypotension. The patient also complained of diarrhea . Rev iew of his medications revealed he was on a number of psychotropics medications, including, but not limited to, Elavil, which is notorious for causing orthostatic hypotension. Hence, this medication was held. Otherwise, he was started on IV fluids and psychiatry was consulted for management of the patient's psychiatric medications. The patient was kept on a telemetry monitored (that showed no abberancies) during his stay.He was walked by physical therapy and showed no gait imbalance and was discharged the following day with strict follow up instructions to see his psychiatrist and his PMD, Dr. Zapata. Also, a given the patient was on PO antibiotics prior to admission and complained of loose BM, stool studies were sent that were negative for C. difficie antigen and toxin. - Date & Time of H&P Date of H&P: 11/04/18 Time of H&P: 12:33 Discharge Exam - Head Exam Head Exam: ATRAUMATIC, NORMOCEPHALIC - Eye Exam Eye Exam: EOMI, Normal appearance - ENT Exam ENT Exam: Mucous Membranes Moist, Normal Oropharynx - Neck Exam Neck exam: Normal Inspection - Respiratory Exam Respiratory Exam: Clear to PA & Lateral, NORMAL BREATHING PATTERN - Cardiovascular Exam Cardiovascular Exam: RRR, +S1, +S2 - GI/Abdominal Exam GI & Abdominal Exam: Normal Bowel Sounds - Extremities Exam Extremities exam: normal inspection - Neurological Exam Neurological exam: Alert, CN II-XII Intact, Oriented x3 - Psychiatric Exam Psychiatric exam: Normal Affect, Normal Mood - Skin Skin Exam: Dry, Intact, Normal Color, Warm Discharge Plan - Follow Up Plan Condition: STABLE Disposition: HOME/ ROUTINE Instructions: Bradycardia (DC), Preventing Falls, Near Fainting (DC) Additional Instructions: 1) You are to follow up with your PMD within one week of discharge. 2) You are to discontinue taking your Amitriptyline. 3) You should see you psychiatrist as soon as possible and speak to his office in regards to stopping this medication. 4) Remember to stay well hydrated and when you go from lying down to sitting or to a standing position, get up slowly. Referrals: Landen Zapata MD [Primary Care Provider] - <Ashley Begum - Last Filed: 11/04/18 17:21> Provider - Provider Date of Admission: 11/03/18 06:08 Attending physician: Ashley Begum MD Primary care physician: Landen Zapata MD Consults: 11/03/18 09:56 Physician Consult Routine Comment: Consulting Provider: Tova Gamboa Consulting Physician: Tova Gamboa Reason for Consult: depression, orthostatic hypotension, sedated 11/03/18 13:32 Social Work Referral Routine Comment: d/c plan Physician Instructions: Reason For Exam: l Hospital Course - Lab Results Lab Results: Micro Results 11/03/18 20:50 Stool C. difficile Antigen & Toxins A,B - Final 11/03/18 06:40 Urine Urine Culture - Final No Growth (<1,000 CFU/ML) Most Recent Lab Values WBC 9.3 10^3/uL (4.5-11.0) 11/04/18 06:30 RBC 4.62 10^6/uL (3.5-6.1) 11/04/18 06:30 Hgb 14.3 g/dL (14.0-18.0) 11/04/18 06:30 Hct 41.8 % (42.0-52.0) L 11/04/18 06:30 MCV 90.5 fl (80.0-105.0) 11/04/18 06:30 MCH 31.0 pg (25.0-35.0) 11/04/18 06:30 MCHC 34.2 g/dl (31.0-37.0) 11/04/18 06:30 RDW 12.7 % (11.5-14.5) 11/04/18 06:30 Plt Count 306 10^3/uL (120.0-450.0) 11/04/18 06:30 MPV 9.6 fl (7.0-11.0) 11/04/18 06:30 Gran % 66.3 % (50.0-68.0) 11/04/18 06:30 Lymph % (Auto) 24.0 % (22.0-35.0) 11/04/18 06:30 [place] % (Auto) 8.7 % (1.0-6.0) H 11/04/18 06:30 Eos % (Auto) 0.8 % (1.5-5.0) L 11/04/18 06:30 Baso % (Auto) 0.2 % (0.0-3.0) 11/04/18 06:30 Gran # 6.19 (1.4-6.5) 11/04/18 06:30 Lymph # (Auto) 2.2 (1.2-3.4) 11/04/18 06:30 [place] # (Auto) 0.8 (0.1-0.6) H 11/04/18 06:30 Eos # (Auto) 0.1 (0.0-0.7) 11/04/18 06:30 Baso # (Auto) 0.02 K/mm3 (0.0-2.0) 11/04/18 06:30 Sodium 137 mmol/L (132-148) 11/04/18 06:30 Potassium 4.0 mmol/L (3.6-5.0) 11/04/18 06:30 Chloride 103 mmol/L (98-107) 11/04/18 06:30 Carbon Dioxide 24 mmol/L (21-33) 11/04/18 06:30 Anion Gap 14 (10-20) 11/04/18 06:30 BUN 17 mg/dL (7-21) 11/04/18 06:30 Creatinine 1.3 mg/dl (0.8-1.5) 11/04/18 06:30 Est GFR ( Amer) > 60 11/04/18 06:30 Est GFR (Non-Af Amer) 59 11/04/18 06:30 Random Glucose 111 mg/dL (70-110) H 11/04/18 06:30 Calcium 9.1 mg/dL (8.4-10.5) 11/04/18 06:30 Phosphorus 3.8 mg/dL (2.5-4.5) 11/04/18 06:30 Magnesium 2.2 mg/dL (1.7-2.2) 11/04/18 06:30 Total Bilirubin 1.2 mg/dL (0.2-1.3) 11/04/18 06:30 AST 53 U/L (17-59) 11/04/18 06:30 ALT 71 U/L (7-56) H 11/04/18 06:30 Alkaline Phosphatase 77 U/L (38-126) 11/04/18 06:30 Lactate Dehydrogenase 356 U/L (333-699) 11/03/18 03:45 Total Creatine Kinase 192 U/L (35-230) 11/03/18 03:45 Troponin I < 0.01 ng/mL 11/03/18 03:45 Total Protein 7.8 g/dL (5.8-8.3) 11/04/18 06:30 Albumin 4.3 g/dL (3.0-4.8) 11/04/18 06:30 Globulin 3.5 gm/dL 11/04/18 06:30 Albumin/Globulin Ratio 1.3 (1.1-1.8) 11/04/18 06:30 Urine Color Yellow (YELLOW) 11/03/18 06:40 Urine Appearance Clear (CLEAR) 11/03/18 06:40 Urine pH 7.0 (4.7-8.0) 11/03/18 06:40 Ur Specific [place] 1.010 (1.005-1.035) 11/03/18 06:40 Urine Protein Negative mg/dL (<30 mg/dL) 11/03/18 06:40 Urine Glucose (UA) Negative mg/dL (NEGATIVE) 11/03/18 06:40 Urine Ketones Negative mg/dL (NEGATIVE) 11/03/18 06:40 Urine Blood Negative (NEGATIVE) 11/03/18 06:40 Urine Nitrate Negative (NEGATIVE) 11/03/18 06:40 Urine Bilirubin Negative (NEGATIVE) 11/03/18 06:40 Urine Urobilinogen 0.2 E.U./dL (<1 E.U./dL) 11/03/18 06:40 Ur Leukocyte Esterase Negative Lb/uL (NEGATIVE) 11/03/18 06:40 Urine Opiates Screen Negative (NEGATIVE) 11/03/18 06:40 Urine Methadone Screen Negative (NEGATIVE) 11/03/18 06:40 Ur Barbiturates Screen Negative (NEGATIVE) 11/03/18 06:40 Ur Phencyclidine Scrn Negative (NEGATIVE) 11/03/18 06:40 Ur Amphetamines Screen Negative (NEGATIVE) 11/03/18 06:40 U Benzodiazepines Scrn Positive (NEGATIVE) H 11/03/18 06:40 U Oth Cocaine Metabols Negative (NEGATIVE) 11/03/18 06:40 U Cannabinoids Screen Negative (NEGATIVE) 11/03/18 06:40 Alcohol, Quantitative < 10 mg/dL (0-10) 11/03/18 03:45 Attending/Attestation - Attestation I have personally seen and examined this patient.: Yes I have fully participated in the care of the patient.: Yes I have reviewed all pertinent clinical information, including history, physical exam and plan: Yes Notes (Text): 11/04/18 17:18 48 year old male with a past medical history of anxiety and depression who presented with multiple falls at home.There was no focal deficit. Patient CT head was negative.He was found to have Orthostatic Hypotension . He has responded well to IV hydration. His symptoms are improved. Patient is ambulatory and is feeling at his base line. His Amityptiline has been on hold at the time of discharge. Telemetry is unremarkable. He will be discharged home and will follow up with his PCP. Management plan was discussed in detail with patient. Education was provided.
--- NOTE | 2018-11-04 19:05 | CON ---
DATE: 11/04/2018 HISTORY OF PRESENT ILLNESS: In short, the patient is a 48-year-old male with not known history of mental illness. The patient was admitted to the medical site for dizzy spells as well as falling. Psych consult was called for evaluation of psychotropic medications and possible that medication could give the patient falls. The patient was seen and examined, discussed with the nursing staff. The patient presented to be very sleepy, disengaged, does not want to participate in the interview that much. The patient reported that he feels fine at the present moment. The patient reported that he slept well. The patient denied feeling depressed. The patient denied thoughts of harming himself or others. Denied hearing voices. Denied seeing things. Denied feeling anxious. The patient reported that he had never been admitted to the psychiatric inpatient unit and never tried to commit suicide in the past. The patient reported that he sees Dr. Leslie in the [facility]. The patient reported that he fills medication at [facility]. [facility] was contacted, . As per report, the patient was on Wellbutrin XL 150 mg daily, Klonopin 1 mg daily, clonidine 0.2 mg twice a day, Xanax 1 mg, and oxycodone. The patient does not have history of misusing and abusing medication. The patient is not showing up early for his pain medication or benzodiazepines. Oxycodone and Xanax were prescribed by Dr. Hernandez. Wellbutrin and Klonopin were prescribed by Dr. Leslie. PHYSICAL EXAMINATION: VITAL SIGNS: Going back to the patient's presentation, vital signs reviewed. Temperature 98.1, pulse is 54, blood pressure 130/82, respirations 20, oxygen saturation is 98. MEDICATIONS: Reviewed. The patient is on Klonopin 0.5 mg twice a day, Protonix extended-release, and sodium chloride. LABORATORY DATA: Labs reviewed. Chemistry reviewed. Urinalysis reviewed. Toxicology reviewed. Benzodiazepines were positive, but not opioids, even though the patient was prescribed that medication. MENTAL STATUS EXAMINATION: The patient presented to be drowsy, easily arousable, seems to be disengaged and not interested to have interview, intermittent eye contact. Speech was under productive, yes/no answers. Affect was constricted. Thought process was coherent and goal directed. Thought content, the patient denied visual, auditory, or tactile hallucinations. Denied paranoid ideation. The patient denied thoughts of harming himself or others. Denied intent or plan. The patient does not present to be depressed, suicidal, or psychotic. Insight and judgment seems to be fair. Impulses are well controlled. IMPRESSION: Most likely, the patient has mood spectrum disorder and anxiety spectrum disorder. PLAN: The patient was advised to take medications as it was prescribed. The patient was advised to see psychiatrist in the community at [facility]. The patient reported that he missed his appointment yesterday with Dr. Leslie. The patient was educated to reschedule appointment. The patient was educated to let his outpatient psychiatrist know that the patient was admitted on the medical site for falls and dizzy spell. The patient verbalized understanding. The patient contracted for safety. At the present moment, the patient is considered to pose no imminent danger to self or others. This sql report writer will sign off. Should you have any questions, give me a call back. Tova Gamboa MD
== END 2018-11-04 13:33 | disposition home or self-care (01) ==
LOC: ED 03:00 → ERH 06:08 → 2RNO 11:49
PROVIDERS: ADMIT Internal Medicine; ATTEND Internal Medicine
DX: I95.1 Orthostatic hypotension (principal); F32.9 Major depressive disorder, single episode, unspecified; F41.9 Anxiety disorder, unspecified; R29.6 Repeated falls
CPT/HCPCS: 36415; 70450; 71045; 80053; 80320; 80324; 80345; 80346; 80349; 80353; 80358; 80361; 81003; 82550; 83615; 83735; 83992; 84100; 84484; 85025; 87086; 87324; 93005; 97116; 97161; 99285; G0378; G8978; G8979; G8980; J7030

== ENCOUNTER 2019-03-23 23:19 | Observation (INO) | payer MEDICAID ==
[2019-03-23 23:19] VITALS: BMI 25.8
--- NOTE | 2019-03-24 00:54 | ED PDOC ---
Arrival/HPI - General Chief Complaint: Chest Pain Time Seen by Provider: 03/23/19 23:51 Historian: Patient - History of Present Illness Narrative History of Present Illness (Text): 03/24/19 00:50 49 year old male, whose past medical history includes anxiety, depression, syncope, and hypotension, presents to the emergency department complaining of chest discomfort. Patient informs pain felt like tightness. Patient informs pain radiated down the left arm. Patient denies any associated shortness of breath. Patient states he became sweaty and felt dizzy at one point. Patient denies any fever, chills, cough, abdominal pain, nausea, vomiting, diarrhea, or any other complaint. Time/Duration: Prior to Arrival Symptom Onset: Gradual Symptom Course: Unchanged Quality: Tightness Activities at Onset: Light Context: Home Past Medical History - Provider Review Nursing Documentation Reviewed: Yes - Infectious Disease Hx of Infectious Diseases: None - Cardiac Hx Cardiac Disorders: No Hx Pacemaker: No - Pulmonary Hx Respiratory Disorders: No - Neurological Hx Neurological Disorder: Yes Hx Dizziness: Yes - HEENT Hx HEENT Disorder: Yes (eyeglasses) - Renal Hx Renal Disorder: No - Endocrine/Metabolic Hx Endocrine Disorders: No - Hematological/Oncological Hx Blood Disorders: No - Integumentary Hx Dermatological Disorder: Yes Other/Comment: multiple tatoos, abrasions both knees slight swelling and pain right knee - Musculoskeletal/Rheumatological Hx Musculoskeletal Disorders: Yes Hx Falls: Yes (recent multiple dizzy and falls) Hx Unsteady Gait: Yes Other/Comment: work related hand laceration - Gastrointestinal Hx Gastrointestinal Disorders: Yes (dysphagia) Hx Gastroesophageal Reflux: Yes Other/Comment: blood in stool "quite a few episodes" started a few " months ago". had endo 05/18/18 dx gastritis, barretts esophagus, duodenal bulb nodes, Pt stated " I had duodenal gastric esophageal ulcers" - Genitourinary/Gynecological Hx Genitourinary Disorders: No - Psychiatric Hx Psychophysiologic Disorder: Yes Hx Anxiety: Yes Hx Depression: Yes Hx Emotional Abuse: No Hx Panic Disorder: Yes Hx Physical Abuse: No Hx Substance Use: No - Surgical History Hx Orthopedic Surgery: Yes Other/Comment: Left foot surgery bone needed to be cut has 2 pins and screws in 2011, epidurals x 3 over ten yrs ago, conflicting stories between pt's mom and pt, mother stated' "He had injections to his neck and got infected. That's why he's on abx now." Pt stated "I had surgery because my disc's were grinding and worn cartilage." - Anesthesia Hx Anesthesia Reactions: No Hx Malignant Hyperthermia: No - Suicidal Assessment Feels Threatened In Home Enviroment: No Family/Social History - Physician Review Nursing Documentation Reviewed: Yes Family/Social History: No Known Family HX Smoking Status: Never Smoked Hx Alcohol Use: No Hx Substance Use: No Hx Substance Use Treatment: No Allergies/Home Meds Allergies/Adverse Reactions: Allergies No Known Allergies Allergy (Verified 03/23/19 23:31) Home Medications: Home Meds Medication Instructions Recorded Confirmed Bupropion HCl [Wellbutrin XL] 150 mg PO DAILY 05/12/18 11/03/18 Cholecalciferol (Vitamin D3) 5,000 unit PO DAILY 05/12/18 11/03/18 [Vitamin D3] Multivitamin/Iron/Folic Acid 1 tab PO DAILY 05/12/18 11/03/18 [Centrum Adults Tablet] Escitalopram [Lexapro] 15 mg PO DAILY 11/03/18 11/03/18 cloNIDine [Catapres] 0.2 mg PO TID 11/03/18 11/03/18 clonazePAM [Klonopin] 1 mg PO DAILY PRN 11/03/18 11/03/18 Review of Systems - Physician Review All systems were reviewed & negative as marked: Yes - Review of Systems Constitutional: absent: Fevers, Night Sweats Respiratory: absent: SOB, Cough Cardiovascular: Chest Pain. absent: MANN Gastrointestinal: absent: Abdominal Pain, Diarrhea, Nausea, Vomiting Neurological: Dizziness Endocrine: Diaphoresis Physical Exam Vital Signs Reviewed: Yes Vital Signs Temp Pulse Resp BP Pulse Ox 03/23/19 23:32 98.8 F 90 20 152/83 H 95 Temperature: Afebrile Blood Pressure: Hypertensive Pulse: Regular Respiratory Rate: Normal Appearance: Positive for: Well-Appearing, Non-Toxic, Comfortable Pain Distress: None Mental Status: Positive for: Alert and Oriented X 3 - Systems Exam Head: Present: Atraumatic, Normocephalic Pupils: Present: PERRL Extroacular Muscles: Present: EOMI Conjunctiva: Present: Normal Mouth: Present: Moist Mucous Membranes Neck: Present: Normal Range of Motion Respiratory/Chest: Present: Clear to Auscultation, Good Air Exchange. No: Respiratory Distress, Accessory Muscle Use Cardiovascular: Present: Regular Rate and Rhythm, Normal S1, S2. No: Murmurs Abdomen: No: Tenderness, Distention, Peritoneal Signs Back: Present: Normal Inspection Upper Extremity: Present: Normal Inspection. No: Cyanosis, Edema Lower Extremity: Present: Normal Inspection. No: Edema Neurological: Present: GCS=15, CN II-XII Intact, Speech Normal Skin: Present: Warm, Dry, Normal Color. No: Rashes Psychiatric: Present: Alert, Oriented x 3, Normal Insight, Normal Concentration Medical Decision Making ED Course and Treatment: 03/24/19 00:57 Impression: 49 year old male presents with chest pain. Plan: -- Caridac Iso, CMP -- CBC, Platelets -- CHest X-ray -- EKG -- Reassess and disposition Prior Visits: Notes and results from previous visits were reviewed. Progress Notes: EKG reviewed by me, shows: Normal sinus rhythm @ 86bpm Nonspecific STT wave changes 03/24/19 03:38 Chest X-ray reviewed by me, shows: No acute process. 03/24/19 04:45 Spoke with medical records technician and house doctor, Dr Holland, who accepts to the hospitalist service. - RAD Interpretation Radiology Orders: 03/24/19 00:48 CHEST PORTABLE [RAD] Stat - Scribe Statement The provider has reviewed the documentation as recorded by the Poppy Yang Provider Scribe Attestation: All medical record entries made by the Scribe were at my direction and personally dictated by me. I have reviewed the chart and agree that the record accurately reflects my personal performance of the history, physical exam, medical decision making, and the department course for this patient. I have also personally directed, reviewed, and agree with the discharge instructions and disposition. Disposition/Present on Arrival - Present on Arrival Any Indicators Present on Arrival: No History of DVT/PE: No History of Uncontrolled Diabetes: No Urinary Catheter: No History of Decub. Ulcer: No History Surgical Site Infection Following: None - Disposition Have Diagnosis and Disposition been Completed?: Yes Diagnosis: Chest pain Disposition: HOSPITALIZED Disposition Time: 04:17 Condition: STABLE
[2019-03-24 01:00] LABS: HEMOGLOBIN 14.9 g/dL (14.0-18.0); MEAN CORPUSCULAR HEMOGLOBIN 31.6 pg (25.0-35.0); MEAN CORPUSCULAR HGB CONC 35.6 g/dl (31.0-37.0); MEAN PLATELET VOLUME 9.4 fl (7.0-11.0); RBC 4.71 10^6/uL (3.5-6.1); RED CELL DISTRIBUTION WIDTH 12.5 % (11.5-14.5); WHITE BLOOD COUNT 11.5 10^3/uL (4.5-11.0)
[2019-03-24 01:05] LABS: INR 1.11; PARTIAL THROMBOPLASTIN TIME 30.6 Seconds (26.9-38.3); PROTHROMBIN TIME 12.3 SECONDS (9.4-12.5)
[2019-03-24 01:07] LABS: ALB/GLOB RATIO 1.4 (1.1-1.8); ALBUMIN 4.7 g/dL (3.0-4.8); ALT/SGPT 48 U/L (7-56); AST/SGOT 31 U/L (17-59); BLOOD UREA NITROGEN 11 mg/dL (7-21); CALCIUM 9.4 mg/dL (8.4-10.5); GFR NON-AFRICAN AMERICAN > 60
[2019-03-24 01:18] LABS: TROPONIN I < 0.01 ng/mL
[2019-03-24] MEDS ORDERED: Morphine 2 mg/ml ISec IVP STA (03:40)
--- NOTE | 2019-03-24 04:20 | CP.PCM.HP ---
<Ciro Lyon - Last Filed: 03/24/19 06:06> History of Present Illness - History of Present Illness History of Present Illness: Ciro Lyon, PGY1 H&P for Dr. Holland cc: "cp" Patient is a 49 year old male, whose past medical history includes Anxiety, depression, syncope, Gastritis (EGD 04/2018), orthostatic hypotension, presents to the emergency department complaining of chest discomfort. Patient says chest pain is left sided. It is described as tightness. Chest pain started when he was watching TV and he noticed he was soaked/diaphoretic. Chest pain radiates down left arm. He said he never had this feeling in the past before. Patient denied any associated shortness of breath. Patient denies any fever, chills, cough, abdominal pain, nausea, vomiting, diarrhea. Last admission was in 10/2018 for multiple falls at home 2/2 orthostatic hypotension. A full 12 point ROS was conducted and unremarkable except as stated above. PMD: Dr. Zapata Pharm: [facility] PMH: Anxiety, depression, syncope, Gastritis (EGD 04/2018), orthostatic hypotension PSH: Left foot surgery, unspecified Allergies: NKDA Family History: denies Social: Denies alcohol, tobacco, or illicit drug use Meds: see MAR Allergies: NKDA Present on Admission - Present on Admission Any Indicators Present on Admission: No Review of Systems - Review of Systems All systems: reviewed and no additional remarkable complaints except (as per HPI) Past Patient History - Infectious Disease Hx of Infectious Diseases: None - Past Social History Smoking Status: Never Smoked - CARDIAC Hx Cardiac Disorders: No Hx Pacemaker: No - PULMONARY Hx Respiratory Disorders: No - NEUROLOGICAL Hx Neurological Disorder: Yes Hx Dizziness: Yes - HEENT Hx HEENT Problems: Yes (eyeglasses) - RENAL Hx Chronic Kidney Disease: No - ENDOCRINE/METABOLIC Hx Endocrine Disorders: No - HEMATOLOGICAL/ONCOLOGICAL Hx Blood Disorders: No - INTEGUMENTARY Hx Dermatological Problems: Yes Other/Comment: multiple tatoos, abrasions both knees slight swelling and pain right knee - MUSCULOSKELETAL/RHEUMATOLOGICAL Hx Musculoskeletal Disorders: Yes Hx Falls: Yes (recent multiple dizzy and falls) Hx Unsteady Gait: Yes Other/Comment: work related hand laceration - GASTROINTESTINAL Hx Gastrointestinal Disorders: Yes (dysphagia) Hx Gastroesophageal Reflux: Yes Other/Comment: blood in stool "quite a few episodes" started a few " months ago". had endo 05/18/18 dx gastritis, barretts esophagus, duodenal bulb nodes, Pt stated " I had duodenal gastric esophageal ulcers" - GENITOURINARY/GYNECOLOGICAL Hx Genitourinary Disorders: No - PSYCHIATRIC Hx Psychophysiologic Disorder: Yes Hx Anxiety: Yes Hx Depression: Yes Hx Emotional Abuse: No Hx Panic Symptoms: Yes Hx Physical Abuse: No Hx Substance Use: No - SURGICAL HISTORY Hx Orthopedic Surgery: Yes Other/Comment: Left foot surgery bone needed to be cut has 2 pins and screws in 2011, epidurals x 3 over ten yrs ago, conflicting stories between pt's mom and pt, mother stated' "He had injections to his neck and got infected. That's why he's on abx now." Pt stated "I had surgery because my disc's were grinding and worn cartilage." - ANESTHESIA Hx Anesthesia Reactions: No Hx Malignant Hyperthermia: No Meds Allergies/Adverse Reactions: Allergies Allergy/AdvReac Type Severity Reaction Status Date / Time No Known Allergies Allergy Verified 03/23/19 23:31 Physical Exam - Constitutional Appears: No Acute Distress - Head Exam Head Exam: ATRAUMATIC, NORMAL INSPECTION, NORMOCEPHALIC - Eye Exam Eye Exam: EOMI, Normal appearance Pupil Exam: NORMAL ACCOMODATION - ENT Exam ENT Exam: Mucous Membranes Moist - Respiratory Exam Respiratory Exam: Clear to Auscultation Bilateral. absent: Chest Wall Tenderness, Rales, Rhonchi, Wheezes - Cardiovascular Exam Cardiovascular Exam: RRR, +S1, +S2 - GI/Abdominal Exam GI & Abdominal Exam: Normal Bowel Sounds, Soft, Tenderness (Mild epigastric tenderness ). absent: Firm, Guarding, Rebound, Rigid - Extremities Exam Extremities exam: Positive for: normal capillary refill, normal inspection, pedal pulses present - Back Exam Back exam: NORMAL INSPECTION - Neurological Exam Neurological exam: Alert, CN II-XII Intact, Oriented x3 - Psychiatric Exam Psychiatric exam: Normal Affect, Normal Mood - Skin Skin Exam: Dry, Intact, Normal Color, Warm Results - Vital Signs Recent Vital Signs: Last Vital Signs Temp 98.8 F 03/23/19 23:32 Pulse 77 03/24/19 02:53 Resp 18 03/24/19 02:53 BP 133/68 03/24/19 02:53 Pulse Ox 97 03/24/19 02:53 - Labs Result Diagrams: 03/24/19 00:20 03/24/19 00:20 Labs: Laboratory Results - last 24 hr 03/24/19 03/24/19 03/24/19 00:20 00:20 00:20 WBC 11.5 H D RBC 4.71 Hgb 14.9 Hct 41.9 L MCV 89.0 MCH 31.6 MCHC 35.6 RDW 12.5 Plt Count 371 MPV 9.4 PT 12.3 INR 1.11 APTT 30.6 Sodium 137 Potassium 3.6 Chloride 96 L Carbon Dioxide 29 Anion Gap 15 BUN 11 Creatinine 1.2 Est GFR ( Amer) > 60 Est GFR (Non-Af Amer) > 60 Random Glucose 101 Calcium 9.4 Total Bilirubin 1.1 AST 31 ALT 48 Alkaline Phosphatase 62 Lactate Dehydrogenase 325 L Total Creatine Kinase 64 Troponin I < 0.01 Total Protein 8.1 Albumin 4.7 Globulin 3.4 Albumin/Globulin Ratio 1.4 Assessment & Plan - Assessment and Plan (Free Text) Assessment: Patient is a 49 year old male, whose past medical history includes Anxiety, depression, syncope, Gastritis (EGD 04/2018), orthostatic hypotension, presents to the emergency department complaining of chest discomfort. Plan: Chest Pain - r/o ACS - initial trop negative x1; serial troponins q6 - TSH - Hgb A1c - Lipid Panel - ASA 81mg PO daily - CXR - Cardiology consult (Dr. Galan) - D - EKG: NSR, [address] or T wave changes. - CXR: no active disease Gastritis - Protonix 40mg PO daily - EGD on 04/2018 - Abdominal US given mild epigastric tenderness ppx: - ptx - scd Diet: HHD Dispo: Will admit patient to tele. Case was discussed and reviewed with Attending Physician, Dr. Holland. <Julee Holland - Last Filed: 03/24/19 19:08> Results - Vital Signs Recent Vital Signs: Last Vital Signs Temp 97.5 F L 03/24/19 17:56 Pulse 82 03/24/19 18:00 Resp 20 03/24/19 17:56 BP 124/81 03/24/19 17:56 Pulse Ox 94 L 03/24/19 10:32 - Labs Result Diagrams: 03/24/19 00:20 03/24/19 00:20 Labs: Laboratory Results - last 24 hr 03/24/19 03/24/19 03/24/19 00:20 00:20 00:20 WBC 11.5 H D RBC 4.71 Hgb 14.9 Hct 41.9 L MCV 89.0 MCH 31.6 MCHC 35.6 RDW 12.5 Plt Count 371 MPV 9.4 PT 12.3 INR 1.11 APTT 30.6 Sodium 137 Potassium 3.6 Chloride 96 L Carbon Dioxide 29 Anion Gap 15 BUN 11 Creatinine 1.2 Est GFR ( Amer) > 60 Est GFR (Non-Af Amer) > 60 Random Glucose 101 Hemoglobin A1c Calcium 9.4 Total Bilirubin 1.1 AST 31 ALT 48 Alkaline Phosphatase 62 Lactate Dehydrogenase 325 L Total Creatine Kinase 64 Troponin I < 0.01 Total Protein 8.1 Albumin 4.7 Globulin 3.4 Albumin/Globulin Ratio 1.4 Triglycerides Cholesterol LDL Cholesterol Direct HDL Cholesterol TSH 3rd Generation Urine Opiates Screen Urine Methadone Screen Ur Barbiturates Screen Ur Phencyclidine Scrn Ur Amphetamines Screen U Benzodiazepines Scrn U Oth Cocaine Metabols U Cannabinoids Screen 03/24/19 03/24/19 03/24/19 08:30 08:30 08:30 WBC RBC Hgb Hct MCV MCH MCHC RDW Plt Count MPV PT INR APTT Sodium Potassium Chloride Carbon Dioxide Anion Gap BUN Creatinine Est GFR ( Amer) Est GFR (Non-Af Amer) Random Glucose Hemoglobin A1c 5.0 Calcium Total Bilirubin AST ALT Alkaline Phosphatase Lactate Dehydrogenase Total Creatine Kinase Troponin I < 0.01 Total Protein Albumin Globulin Albumin/Globulin Ratio Triglycerides 211 H Cholesterol 258 H LDL Cholesterol Direct 180 H HDL Cholesterol 33 TSH 3rd Generation 3.52 Urine Opiates Screen Urine Methadone Screen Ur Barbiturates Screen Ur Phencyclidine Scrn Ur Amphetamines Screen U Benzodiazepines Scrn U Oth Cocaine Metabols U Cannabinoids Screen 03/24/19 03/24/19 11:50 15:50 WBC RBC Hgb Hct MCV MCH MCHC RDW Plt Count MPV PT INR APTT Sodium Potassium Chloride Carbon Dioxide Anion Gap BUN Creatinine Est GFR ( Amer) Est GFR (Non-Af Amer) Random Glucose Hemoglobin A1c Calcium Total Bilirubin AST ALT Alkaline Phosphatase Lactate Dehydrogenase Total Creatine Kinase Troponin I < 0.01 Total Protein Albumin Globulin Albumin/Globulin Ratio Triglycerides Cholesterol LDL Cholesterol Direct HDL Cholesterol TSH 3rd Generation Urine Opiates Screen Positive H Urine Methadone Screen Negative Ur Barbiturates Screen Negative Ur Phencyclidine Scrn Negative Ur Amphetamines Screen Negative U Benzodiazepines Scrn Negative U Oth Cocaine Metabols Negative U Cannabinoids Screen Negative Attending/Attestation - Attestation I have personally seen and examined this patient.: Yes I have fully participated in the care of the patient.: Yes I have reviewed all pertinent clinical information: Yes Notes (Text): 03/24/19 19:05 Seen and examined. Discussed with resident. A&P as above. Atypical CP and abdominal pain. Possibly malingering?? ordered abdomoinal U/S. 03/24/19 19:07
[2019-03-24] MEDS: Pantoprazole 40 mg EC Tab PO SCH (06:35)
--- NOTE | 2019-03-24 08:47 | RAD ---
Date of service: 03/24/2019 HISTORY: chest pain COMPARISON: 11/03/2018 FINDINGS: LUNGS: No active pulmonary disease. PLEURA: No significant pleural effusion identified, no pneumothorax apparent. CARDIOVASCULAR: No atherosclerotic calcification present Normal. OSSEOUS STRUCTURES: No significant abnormalities. VISUALIZED UPPER ABDOMEN: Normal. OTHER FINDINGS: None. IMPRESSION: No active disease. No significant interval change compared to the prior examination(s).
[2019-03-24 08:57] LABS: HDL CHOLESTEROL 33 mg/dL (29-60)
--- NOTE | 2019-03-24 09:05 | US ---
Date of service: 03/24/2019 HISTORY: generalized abdominal pain, most epigastric COMPARISON: None. TECHNIQUE: Sonographic evaluation of the abdomen. FINDINGS: LIVER: Measures 21.1 cm. Patent portal and hepatic venous systems. Hepatopedal blood flow. Fatty infiltration manifest ultrasonographically as increased echogenicity of the liver parenchyma. No mass. No intrahepatic bile duct dilatation. Focal fatty sparing adjacent to the gallbladder right hepatic lobe. This measures 1.7 x 2.2 cm. GALLBLADDER: Unremarkable. No gallstones. COMMON BILE DUCT: Measures 6.5 mm. No stones. No dilatation. PANCREAS: Obscured by overlying bowel gas. Non diagnostic assessment of the pancreas. RIGHT KIDNEY: Measures 4.7 x 11cm. Normal echogenicity. No calculus, mass, or hydronephrosis. LEFT KIDNEY: Measures 5.6 x 11.6cm. Normal echogenicity. No calculus, mass, or hydronephrosis. Incidental midpole cyst 1.5 x 1.5 cm. SPLEEN: Normal in size and contour. No mass. AORTA: Obscured by overlying bowel gas. Non diagnostic assessment of the abdominal aorta. IVC: Unremarkable. OTHER FINDINGS: None. IMPRESSION: Hepatomegaly, hepatic steatosis. Limitations of the current examination: Pancreas obscured by overlying bowel gas. Nondiagnostic study of the abdominal aorta ulcer obscured by overlying bowel gas.
[2019-03-24 09:08] LABS: LDL CHOLESTEROL 180 mg/dL (0-129)
[2019-03-24 09:09] LABS: TROPONIN I < 0.01 ng/mL
[2019-03-24] MEDS: Enoxaparin 40 mg Syringe SC SCH (10:32)
[2019-03-24] MEDS ORDERED: Alum-Mag Hydrox-Simethicone Susp (30 mL) PO PRN (10:45)
--- NOTE | 2019-03-24 10:54 | CARD ---
APPROVED REPORT Date of service: 03/23/2019 EKG Measurement Heart [id number] <Conclusion> Normal sinus rhythm Nonspecific ST changes Abnormal ECG
[2019-03-24] MEDS ORDERED: Barium Sulfate Susp 2.1% w/v, 2.0% w/w 450 mL Bottle PO ONE (11:32)
[2019-03-24 16:24] LABS: BENZODIAZEPINES, UR NEGATIVE (NEGATIVE)
[2019-03-24] MEDS: Sucralfate 1 gm/10 ml Oral Susp UD PO SCH ×2 (16:40→16:42)
[2019-03-24 16:45] LABS: BARBITURATES, UR NEGATIVE (NEGATIVE); OPIATES, UR POSITIVE (NEGATIVE); PHENCYCLIDINE, UR NEGATIVE (NEGATIVE)
[2019-03-25] MEDS: Pantoprazole 40 mg EC Tab PO SCH (05:32)
[2019-03-25] MEDS: Sucralfate 1 gm/10 ml Oral Susp UD PO SCH ×2 (05:32→16:28)
[2019-03-25 05:59] VITALS: O2SAT 96
[2019-03-25 06:58] LABS: HEMOGLOBIN 14.4 g/dL (14.0-18.0); MEAN CELL VOLUME 89.7 fl (80.0-105.0); MEAN CORPUSCULAR HGB CONC 34.6 g/dl (31.0-37.0); MEAN PLATELET VOLUME 9.1 fl (7.0-11.0); RBC 4.64 10^6/uL (3.5-6.1); RED CELL DISTRIBUTION WIDTH 12.5 % (11.5-14.5); WHITE BLOOD COUNT 9.4 10^3/uL (4.5-11.0)
[2019-03-25 07:28] LABS: ALB/GLOB RATIO 1.4 (1.1-1.8); ALBUMIN 4.2 g/dL (3.0-4.8); ALT/SGPT 50 U/L (7-56); AST/SGOT 44 U/L (17-59); BLOOD UREA NITROGEN 10 mg/dL (7-21); GFR NON-AFRICAN AMERICAN > 60
--- NOTE | 2019-03-25 09:11 | CT ---
Date of service: 03/24/2019 PROCEDURE: CT scan of the abdomen and pelvis HISTORY: Abdominal pain. COMPARISON: None. TECHNIQUE: Contiguous axial images of the abdomen and pelvis performed without oral or intravenous contrast material. Additional 2D sagittal and coronal reformats generated. Radiation dose: Total exam DLP = 1095.68 mGy-cm. This CT exam was performed using one or more of the following dose reduction techniques: Automated exposure control, adjustment of the mA and/or kV according to patient size, and/or use of iterative reconstruction technique. FINDINGS: LOWER THORAX: Minimal bibasilar atelectasis with linear scarring seen in the left posterior sulcus. Tiny calcified granuloma seen both lung bases. Findings suggest prior exposure to granulomatous disease process No effusion or basilar pneumothorax. Heart size within range of normal. No significant pericardial effusion.. There is a tiny hiatal hernia. LIVER: Liver is upper limits of normal in size measuring over 18 cm in CC dimension.. Mild diffuse fatty hepatic infiltration. GALLBLADDER AND BILE DUCTS: Gallbladder physiologically distended. No evidence of intraluminal gallbladder calculi. PANCREAS: Pancreas slightly atrophic and fatty replaced. No pancreatic masses collections or calcifications so far as can be seen. SPLEEN: Spleen is mildly enlarged measuring over 15 cm in AP dimension.. ADRENALS: There are no adrenal lesions. KIDNEYS AND URETERS: Kidneys demonstrate relatively symmetric size. No evidence of nephrolithiasis or hydronephrosis. BLADDER: Urinary bladder is incompletely distended which in part accounts for slight thick-walled appearance. Muscular hypertrophy may contribute. REPRODUCTIVE: Unremarkable as visualized. APPENDIX: Normal appendix. BOWEL: Evaluation of the bowel is somewhat limited due to incomplete opacification. The stomach is incompletely distended with thick-walled appearance. Rule out gastritis however other intrinsic invasive wall lesion not excluded. Visualized loops of small bowel exhibit normal contour and caliber. No evidence of acute mechanical small bowel obstruction. Colon appears grossly unremarkable. PERITONEUM: Unremarkable. No fluid collection. No free air. There is a small fat containing umbilical hernia.. There are small bilateral fat containing inguinal hernias. LYMPH NODES: Unremarkable. No enlarged lymph nodes. VASCULATURE: Unremarkable. No aortic aneurysm. No aortic atherosclerotic calcification or mural plaque present. BONES: Mild multilevel degenerative spondylosis of the lower thoracic and lumbar spine. OTHER FINDINGS: None. IMPRESSION: Mild splenomegaly. Mild fatty hepatic infiltration. Tiny bibasilar calcified granulomas.
--- NOTE | 2019-03-25 12:12 | PN ---
DATE: 03/25/2019 The patient's consultation was changed to Dr. Sierra. No consultation was performed. Kal Galan MD
[2019-03-25 12:20] VITALS: BP 161/94; RESP 20; TEMP 98.4
[2019-03-25] MEDS: Enoxaparin 40 mg Syringe SC SCH (12:22)
[2019-03-25 14:01] VITALS: PULSE 90
--- NOTE | 2019-03-25 15:25 | CP.PCM.DIS ---
<[place] - Last Filed: 03/25/19 14:59> Provider - Provider Date of Admission: 03/24/19 04:17 Attending physician: Ashley Begum MD Primary care physician: Landen Zapata MD Consults: 03/24/19 11:12 Cardiology Consult Routine Comment: Consulting Provider: Geovany Sierra Consulting Physician: Geovany Sierra Reason for Consult: chest pain Time Spent in preparation of Discharge (in minutes): 45 Hospital Course - Lab Results Lab Results: Most Recent Lab Values WBC 9.4 10^3/uL (4.5-11.0) 03/25/19 06:30 RBC 4.64 10^6/uL (3.5-6.1) 03/25/19 06:30 Hgb 14.4 g/dL (14.0-18.0) 03/25/19 06:30 Hct 41.6 % (42.0-52.0) L 03/25/19 06:30 MCV 89.7 fl (80.0-105.0) 03/25/19 06:30 MCH 31.0 pg (25.0-35.0) 03/25/19 06:30 MCHC 34.6 g/dl (31.0-37.0) 03/25/19 06:30 RDW 12.5 % (11.5-14.5) 03/25/19 06:30 Plt Count 338 10^3/uL (120.0-450.0) 03/25/19 06:30 MPV 9.1 fl (7.0-11.0) 03/25/19 06:30 PT 12.3 SECONDS (9.4-12.5) 03/24/19 00:20 INR 1.11 03/24/19 00:20 APTT 30.6 Seconds (26.9-38.3) 03/24/19 00:20 Sodium 137 mmol/L (132-148) 03/25/19 06:30 Potassium 3.7 mmol/L (3.6-5.0) 03/25/19 06:30 Chloride 97 mmol/L (98-107) L 03/25/19 06:30 Carbon Dioxide 30 mmol/L (21-33) 03/25/19 06:30 Anion Gap 13 (10-20) 03/25/19 06:30 BUN 10 mg/dL (7-21) 03/25/19 06:30 Creatinine 1.2 mg/dl (0.8-1.5) 03/25/19 06:30 Est GFR ( Amer) > 60 03/25/19 06:30 Est GFR (Non-Af Amer) > 60 03/25/19 06:30 Random Glucose 91 mg/dL (70-110) 03/25/19 06:30 Hemoglobin A1c 5.0 % (4.2-6.5) 03/24/19 08:30 Calcium 9.0 mg/dL (8.4-10.5) 03/25/19 06:30 Total Bilirubin 1.5 mg/dL (0.2-1.3) H 03/25/19 06:30 AST 44 U/L (17-59) 03/25/19 06:30 ALT 50 U/L (7-56) 03/25/19 06:30 Alkaline Phosphatase 58 U/L (38-126) 03/25/19 06:30 Lactate Dehydrogenase 325 U/L (333-699) L 03/24/19 00:20 Total Creatine Kinase 64 U/L (35-230) 03/24/19 00:20 Troponin I < 0.01 ng/mL 03/24/19 11:50 Total Protein 7.2 g/dL (5.8-8.3) 03/25/19 06:30 Albumin 4.2 g/dL (3.0-4.8) 03/25/19 06:30 Globulin 3.0 gm/dL 03/25/19 06:30 Albumin/Globulin Ratio 1.4 (1.1-1.8) 03/25/19 06:30 Triglycerides 211 mg/dL (35-160) H 03/24/19 08:30 Cholesterol 258 mg/dL (130-200) H 03/24/19 08:30 LDL Cholesterol Direct 180 mg/dL (0-129) H 03/24/19 08:30 HDL Cholesterol 33 mg/dL (29-60) 03/24/19 08:30 TSH 3rd Generation 2.96 mIU/mL (0.46-4.68) 03/25/19 07:00 Urine Opiates Screen Positive (NEGATIVE) H 03/24/19 15:50 Urine Methadone Screen Negative (NEGATIVE) 03/24/19 15:50 Ur Barbiturates Screen Negative (NEGATIVE) 03/24/19 15:50 Ur Phencyclidine Scrn Negative (NEGATIVE) 03/24/19 15:50 Ur Amphetamines Screen Negative (NEGATIVE) 03/24/19 15:50 U Benzodiazepines Scrn Negative (NEGATIVE) 03/24/19 15:50 U Oth Cocaine Metabols Negative (NEGATIVE) 03/24/19 15:50 U Cannabinoids Screen Negative (NEGATIVE) 03/24/19 15:50 - Hospital Course Hospital Course: [place], PGY-1, Internal Medicine Discharge Summary for Dr. Begum 49 year old male with past medical history of anxiety, depression, syncope, gastritis with last EGD 04/2018, orthostatic hypotension presented with left sided pressure like chest pain with radiation to left arm. Patient had associated diaphoresis, dizziness, nausea. Patient denied shortness of breath. In addition, patient reports abdominal pain which had been present for few days worse with eating and concentrated in right side of abdomen. In addition, he had associated diarrhea. Patient had history of gastritis and took omeprazole which did not relieve pain. UDS was positive for opiates as he takes oxycodone at home. Upon presentation, EKG showed NSR with nonspecific ST changes with heart rate or 86. Troponinx3 was negative on this admission. HgbA1c was 5, TSH was 2.96. Patient's chest pain improved through this admission. Patient was started on aspirin 81 mg daily and lipitor 20 mg daily on this admission. Dr. Sierra was consulted. As Dr. Sierra was away, Dr. Kamara was consulted. Dr. Kamara recommended that patient should see Dr. Sierra for stress test outpatient. Patient had elevated triglycerides at 211, cholesterol at 258, LDL at 180, and HDL was normal at 33. After calculating ASCVD score, patient was started on lipitor 20 mg daily. For abdominal pain, abdominal ultrasound showed hepatomegaly and hepatic steatosis. Abdominal CT showed mild splenomegaly, mild fatty hepatic infiltration, and tiny bibasilar calcified granulomas. LFTs were within normal limits. Hemoglobin was stable in 14s. Patient was started on protonix, sucralfate, and maalox PRN for possible gastritis. As no acute etiology was found for abdominal pain, patient was asked to have Dr. Zapata refer him to manager ambulatory outpatient for further evaluation. Patient was found to be stable and ready for discharge. Patient was told to take all medications as prescribed. Patient was told to follow up with primary care doctor within 3-5 days. Patient was told to follow up with Dr. Sierra, Cardiology, within 1 week for outpatient stress test and further evaluation of chest pain. Patient was told to have Dr. Zapata refer him to manager ambulatory for further evaluation of abdominal pain. Patient was told to return to the emergency department if he had any new or concerning symptoms. This is a brief summary of the events that occurred during this hospital visit. For more information, please refer to hospital documentation. Discharge Diagnoses Chest pain with ACS rule out Abdominal pain 2/2 to possible gastritis Mixed hypercholesterolemia - Date & Time of H&P Date of H&P: 03/24/19 Time of H&P: 04:13 Discharge Exam - Head Exam Head Exam: ATRAUMATIC, NORMAL INSPECTION, NORMOCEPHALIC - Eye Exam Eye Exam: EOMI Pupil Exam: PERRL - Respiratory Exam Respiratory Exam: Clear to PA & Lateral, NORMAL BREATHING PATTERN - Cardiovascular Exam Cardiovascular Exam: REGULAR RHYTHM, RRR, +S1, +S2. absent: Clicks, Gallop, Rubs - GI/Abdominal Exam GI & Abdominal Exam: Normal Bowel Sounds, Soft, Tenderness. absent: Distended, Firm, Guarding - Extremities Exam Extremities exam: full ROM, normal capillary refill, normal inspection - Neurological Exam Neurological exam: Alert, CN II-XII Intact, Normal Gait, Oriented x3 - Psychiatric Exam Psychiatric exam: Normal Affect, Normal Mood - Skin Skin Exam: Dry, Intact, Normal Color Discharge Plan - Discharge Medications Prescriptions: Atorvastatin [Lipitor] 20 mg PO DIN 30 Days #30 tab Pantoprazole [Protonix EC Tab] 40 mg PO 0600 30 Days #30 ect Sucralfate [Carafate Oral Susp] 1 gm PO 0600,1600 30 Days #60 udc - Follow Up Plan Condition: STABLE Disposition: HOME/ ROUTINE Instructions: Chest Pain (DC) Additional Instructions: Please follow up with primary care doctor within 3-[address] Zapata refer you to GI physician for further evaluation of abdominal pain. Please follow up with Dr. Sierra, Cardiology, within 1 week for stress test Please take all medications as prescribed. Please avoid food high in fat or cholesterol Please return to the emergency department if you have any new or concerning symptoms. Referrals: Geovany Sierra MD [Staff Provider] - Landen Zapata MD [Primary Care Provider] - <Ashley Begum - Last Filed: 03/26/19 15:25> Provider - Provider Date of Admission: 03/24/19 04:17 Attending physician: Ashley Begum MD Primary care physician: Landen Zapata MD Consults: 03/24/19 11:12 Cardiology Consult Routine Comment: Consulting Provider: Geovany Sierra Consulting Physician: Geovany Sierra Reason for Consult: chest pain Hospital Course - Lab Results Lab Results: Most Recent Lab Values WBC 9.4 10^3/uL (4.5-11.0) 03/25/19 06:30 RBC 4.64 10^6/uL (3.5-6.1) 03/25/19 06:30 Hgb 14.4 g/dL (14.0-18.0) 03/25/19 06:30 Hct 41.6 % (42.0-52.0) L 03/25/19 06:30 MCV 89.7 fl (80.0-105.0) 03/25/19 06:30 MCH 31.0 pg (25.0-35.0) 03/25/19 06:30 MCHC 34.6 g/dl (31.0-37.0) 03/25/19 06:30 RDW 12.5 % (11.5-14.5) 03/25/19 06:30 Plt Count 338 10^3/uL (120.0-450.0) 03/25/19 06:30 MPV 9.1 fl (7.0-11.0) 03/25/19 06:30 PT 12.3 SECONDS (9.4-12.5) 03/24/19 00:20 INR 1.11 03/24/19 00:20 APTT 30.6 Seconds (26.9-38.3) 03/24/19 00:20 Sodium 137 mmol/L (132-148) 03/25/19 06:30 Potassium 3.7 mmol/L (3.6-5.0) 03/25/19 06:30 Chloride 97 mmol/L (98-107) L 03/25/19 06:30 Carbon Dioxide 30 mmol/L (21-33) 03/25/19 06:30 Anion Gap 13 (10-20) 03/25/19 06:30 BUN 10 mg/dL (7-21) 03/25/19 06:30 Creatinine 1.2 mg/dl (0.8-1.5) 03/25/19 06:30 Est GFR ( Amer) > 60 03/25/19 06:30 Est GFR (Non-Af Amer) > 60 03/25/19 06:30 Random Glucose 91 mg/dL (70-110) 03/25/19 06:30 Hemoglobin A1c 5.0 % (4.2-6.5) 03/24/19 08:30 Calcium 9.0 mg/dL (8.4-10.5) 03/25/19 06:30 Total Bilirubin 1.5 mg/dL (0.2-1.3) H 03/25/19 06:30 AST 44 U/L (17-59) 03/25/19 06:30 ALT 50 U/L (7-56) 03/25/19 06:30 Alkaline Phosphatase 58 U/L (38-126) 03/25/19 06:30 Lactate Dehydrogenase 325 U/L (333-699) L 03/24/19 00:20 Total Creatine Kinase 64 U/L (35-230) 03/24/19 00:20 Troponin I < 0.01 ng/mL 03/24/19 11:50 Total Protein 7.2 g/dL (5.8-8.3) 03/25/19 06:30 Albumin 4.2 g/dL (3.0-4.8) 03/25/19 06:30 Globulin 3.0 gm/dL 03/25/19 06:30 Albumin/Globulin Ratio 1.4 (1.1-1.8) 03/25/19 06:30 Triglycerides 211 mg/dL (35-160) H 03/24/19 08:30 Cholesterol 258 mg/dL (130-200) H 03/24/19 08:30 LDL Cholesterol Direct 180 mg/dL (0-129) H 03/24/19 08:30 HDL Cholesterol 33 mg/dL (29-60) 03/24/19 08:30 TSH 3rd Generation 2.96 mIU/mL (0.46-4.68) 03/25/19 07:00 Urine Opiates Screen Positive (NEGATIVE) H 03/24/19 15:50 Urine Methadone Screen Negative (NEGATIVE) 03/24/19 15:50 Ur Barbiturates Screen Negative (NEGATIVE) 03/24/19 15:50 Ur Phencyclidine Scrn Negative (NEGATIVE) 03/24/19 15:50 Ur Amphetamines Screen Negative (NEGATIVE) 03/24/19 15:50 U Benzodiazepines Scrn Negative (NEGATIVE) 03/24/19 15:50 U Oth Cocaine Metabols Negative (NEGATIVE) 03/24/19 15:50 U Cannabinoids Screen Negative (NEGATIVE) 03/24/19 15:50 Attending/Attestation - Attestation I have personally seen and examined this patient.: Yes I have fully participated in the care of the patient.: Yes I have reviewed all pertinent clinical information, including history, physical exam and plan: Yes Notes (Text): 03/26/19 15:19 Medical record note made by the resident after discussion with my direction and input after the patient was personally seen and examined by me. I have reviewed the chart and agree that the record accurately reflects by personal performance of the history, physical exam, data review, and medical decision-making, in the course for the patient. I have also personally directed the plan of care. 49 year old male with past medical history of anxiety, depression, , gastritis with last EGD 04/2018, presented with left sided pressure like chest pain with radiation to left arm.EKG was negative for ischemic changes.Serial troponins were normal.Patient telemetry was unremarkable.Patient has epigatric tenderness which improved with PPI and sucralfate.Patient chest pain is likely GI related.His BRIGID score is 1.He will follow up with Cardiology and will need stress test as out patient. Patient remain pain free in the hospital,His LDL level was 180 and he had fatty infilteration in the liver.He was starte don moderate dose statin therapy. Patient was c/o abdominal pain, CT scan of abdomen and Pelvis and abdominal USG is negative for acute abnormality.Patient has fattly liver.He is tolerating regular diet with out any problem.There is no nausea or vomiting or diarrhea.He will be discharged home and will follow up with PMD and GI. Issue of compliance with medication was discussed in detail with the patient. Management plan was discussed in detail with patient. Education was provided.
== END 2019-03-25 16:52 | disposition home or self-care (01) ==
LOC: ED 23:19 → ERH 03-24 04:17 → 2RNO 03-24 05:03
PROVIDERS: ADMIT Internal Medicine; ATTEND Internal Medicine
DX: R07.89 Other chest pain (principal); E78.00 Pure hypercholesterolemia, unspecified; E78.1 Pure hyperglyceridemia; K76.0 Fatty (change of) liver, not elsewhere classified; K21.9 Gastro-esophageal reflux disease without esophagitis
CPT/HCPCS: 36415; 71045; 74176; 76700; 80053; 80061; 80324; 80345; 80346; 80349; 80353; 80358; 80361; 82550; 83036; 83615; 83992; 84443; 84484; 85027; 85610; 85730; 93005; 96374; 99285; G0378; J1650; J1885; J2270